=== PATIENT | male | born 1950 | race Caucasian/White ===

== ENCOUNTER 2024-07-24 12:14 | Emergency (ER) | payer MEDICARE ==
[~2024-07-24 12:14] MED LIST: Iopamidol-370 76% 500 ML MDV (1 ML CHARGE) ONE
[2024-07-24] MEDS ORDERED: Acetaminophen 500 MG TAB ONE (14:07)
[2024-07-24 14:10] LABS: Hemoglobin 13.1 g/dL (14.0-18.0); Mean Corpuscular HGB CONC 33.6 g/dL (32.0-36.0); Mean Corpuscular Hemoglobin 31.3 pg (27.0-31.0); Mean Corpuscular Volume 93.1 fL (78.0-98.0); Mean Platelet Volume 10.6 fL (7.4-10.4); Platelet Count 143 10x3/uL (130-400); RBC Distribution Width 13.3 % (11.5-14.5); Red Blood Cell (RBC) Count 4.19 mill/uL (4.70-6.10)
[2024-07-24 14:29] LABS: ALT (SGPT) 48 U/L (8-55); AST (SGOT) 49 U/L (5-34); Albumin 3.2 g/dL (3.4-4.8); Alkaline Phosphatase 152 U/L (40-110); Anion Gap 10 mmol/L (10-20); BUN (Urea Nitrogen) 6 mg/dL (8.4-25.7); Bilirubin, Total 0.6 mg/dL (0.2-1.2); Calc. Creatinine Clearance 0 mL/min (70-130); Calcium 8.7 mg/dL (7.8-10.44); Carbon Dioxide 27 mmol/L (23-31); Chloride 102 mmol/L (98-107); Estimated GFR 78; Globulin 2.8 g/dL (2.4-3.5); Glucose 116 mg/dL (83-110); Potassium 3.3 mmol/L (3.5-5.1); Sodium 136 mmol/L (136-145)
[2024-07-24 14:34] LABS: Troponin I 0.028 ng/mL (< 0.028)
[2024-07-24 14:39] LABS: Band 10 % (5-11); Lymphocytes 20 % (21-51); Monocytes 10 % (0-10); Neutrophil 52 % (42-75); Ovalocytes SLIGHT = 2-5 cells HPF (0-1); Platelet Adequacy Comment Platelets Normal; Reactive Lymphocytes 9 % (0-10)
[2024-07-24 14:49] LABS: MONO NEGATIVE CONTROL ZONE White (Negative) (White); MONO POSITIVE CONTROL Pink Line (Positive) (PINK/RED); Mononucleosis NEGATIVE (NEGATIVE)
[2024-07-24 15:27] LABS: Bacteria/HPF None Seen HPF (None Seen); Bilirubin Negative (Negative); Blood, Urine Negative (Negative); CAUTI Indications for Culture Dysuria,urgency,freq; Clarity Clear (Clear); Glucose, Urine (Dipstick) Normal (Negative); Ketone, Urine 10 mg/dL (Negative); Leukocyte Negative Leu/uL (Negative); Nitrite Negative (Negative); Protein, Urine (Dipstick) 30 mg/dL (Neg-Trace); RBC/HPF 0-3 HPF (0-3); Squamous Epithelial None Seen HPF (0-3); Urobilinogen Normal mg/dL (Less than 2); WBC/HPF 0-3 HPF (0-3)
[2024-07-24 15:33] LABS: Urine Culture Reflex No No
[2024-07-24] MEDS ORDERED: Potassium Chloride 20 MEQ TAB ONE (15:51)
[2024-07-27 13:37] LABS: West Nile Virus IgG Ab Negative (Negative); West Nile Virus IgM Ab Negative (Negative)
== END 2024-07-24 17:35 | disposition home or self-care (01) ==
LOC: ERS 12:14
DX: E87.6 Hypokalemia (principal); I71.21 Aneurysm of the ascending aorta, without rupture; J20.9 Acute bronchitis, unspecified; J42 Unspecified chronic bronchitis; R91.1 Solitary pulmonary nodule; I10 Essential (primary) hypertension; N40.1 Benign prostatic hyperplasia with lower urinary tract symptoms; E78.5 Hyperlipidemia, unspecified; K21.9 Gastro-esophageal reflux disease without esophagitis
CPT/HCPCS: 71046; 71260; 80053; 81001; 83605; 84484; 85025; 86141; 86308; 86788; 86789; 87040; 87086; 93005; Q9967

== ENCOUNTER 2024-09-24 13:09 | Outpatient (CLI) | payer MEDICARE | END 2024-09-24 13:10 | disposition home or self-care (01) | LOC: CT 13:09 | PROVIDERS: ATTEND Internal Medicine | DX: R91.8 Other nonspecific abnormal finding of lung field (principal); R59.0 Localized enlarged lymph nodes; I25.10 Atherosclerotic heart disease of native coronary artery without angina pectoris | CPT/HCPCS: 36415; 71260; 82565 ==

== ENCOUNTER 2025-02-04 12:39 | Outpatient (CLI) | payer MEDICARE | END 2025-02-04 12:40 | disposition home or self-care (01) | LOC: CT 12:39 | PROVIDERS: ATTEND Family Medicine | DX: Z87.898 Personal history of other specified conditions (principal); R91.1 Solitary pulmonary nodule | CPT/HCPCS: 36415; 71260; 82565 ==